=== PATIENT | female | born 1970 | race Caucasian/White ===

== ENCOUNTER 2018-02-27 15:34 | Day surgery (SDC) | payer OTHER ==
--- NOTE | 2018-02-27 15:18 | HP ---
CC: ADMITTING HISTORY AND PHYSICAL: DATE OF ADMISSION: 02/27/18 ADMITTING DIAGNOSES: 1. Left flank pain. 2. Left hydronephrosis. 3. Calculus, left proximal ureter. PLANNED PROCEDURE: Left ureteroscopy, possible laser and stent insertion ( possibly to be followed in the near future by lithotripsy). SURGEON: Dr. Verde ADMITTING HISTORY AND PHYSICAL: Chelle Delgado is a 47-year-old lady with the history of recurrent renal calculi. She was evaluated for left flank pain and nausea. She had previously been noted to have a 1 cm calculus in the mid pole of the left kidney which was missing on the ultrasound today and the ultrasound showed mild left hydronephrosis. X-ray was obtained which to me showed a smaller calculus in the vicinity of the left proximal to mid ureter and I discussed this with Chelle since the calculus to me appeared smaller on the x-ray than the 1 cm calculus described as missing on the ultrasound. She was given the option of trying conservative management, but because of the proximal location of the calculus and the severity of the pain, she would like to try and have the stone removed and is now being brought in for left ureteroscopy. I have also explained to her that because of the proximal location of the calculus, the stone may migrate into the kidney requiring shockwave lithotripsy in the near future. PAST MEDICAL HISTORY: Significant for: 1. History of morbid obesity status post gastric bypass. 2. Hypothyroidism. 3. Recurrent renal calculi. MEDICATIONS ON ADMISSION: 1. Synthroid 88 mcg a day. 2. Multivitamins daily. ALLERGIES: No known drug allergies. REVIEW OF SYSTEMS: She is otherwise in excellent health. There is no history of diabetes mellitus or any other major systemic illness. PHYSICAL EXAMINATION GENERAL: Reveals an uncomfortable appearing young lady. VITAL SIGNS: Blood pressure is 118/70, pulse 70 per minute and regular, temperature 96, oxygen saturation 97% on room air. LUNGS: Clear bilaterally. CARDIOVASCULAR: Regular rate and rhythm. S1, S2. ABDOMEN: Soft with mild left flank tenderness. IMPRESSION: A 47-year-old with a partially obstructing calculus in the left proximal ureter. PLANNED PROCEDURE: Left ureteroscopy, possible laser and stent insertion ( possibly to be followed in the near future by lithotripsy). [id number]/[facility] #: [id number] [place]
[2018-02-27] MEDS ORDERED: Buffered Lidocaine 0.9% SYRIN* 5 ML/SYR SYRINGE ONE (15:36)
[2018-02-27] MEDS ORDERED: cefTRIAXone(*) 2 GM ADDV.VIAL IVPB ONE (15:53)
[2018-02-27] MEDS ORDERED: Iohexol 180 (CONTRAST) 10 ML SDV IV ONE (16:23)
[2018-02-27] MEDS ORDERED: fentaNYL* 50 MCG/ML 2 ML VIAL (100 MCG VIAL) ONE ×2 (16:34→18:41)
[2018-02-27] MEDS ORDERED: Midazolam* 1 MG/ML 2 ML VIAL (2 MG) ONE (16:34)
[2018-02-27] MEDS ORDERED: Buffered Lidocaine 0.9% SYRIN* 5 ML/SYR SYRINGE INTRADERM ONE (16:37)
[2018-02-27] MEDS ORDERED: PROCHLORPERAZINE INJ 5 MG/ML 2 ML VIAL IV PRN (16:38)
[2018-02-27] MEDS ORDERED: DiMENhydriNATE IV* 50 MG/ML VIAL IV PUSH PRN (16:38)
[2018-02-27] MEDS ORDERED: Acetaminophen TAB* 325 MG PO PRN (16:38)
[2018-02-27] MEDS ORDERED: Ondansetron INJ* 2 MG/ML VIAL IV PRN (16:38)
[2018-02-27] MEDS ORDERED: HYDROcodone/ACETAMIN 5-325 MG* 1 TAB PO PRN (16:38)
[2018-02-27] MEDS ORDERED: Naloxone* 0.4 MG/ML 1 ML VIAL IV PRN (16:38)
[2018-02-27] MEDS ORDERED: fentaNYL* 50 MCG/ML 2 ML VIAL (100 MCG VIAL) IV PRN (16:38)
[2018-02-27] MEDS ORDERED: Gentamicin ADULT (*) 180 MG in NS 0.9% 100 ML* 100 ML IVPB ONE (17:00)
[2018-02-27] MEDS ORDERED: Lidocaine 2% PF * 5 ML VIAL ONE (17:34)
[2018-02-27] MEDS ORDERED: Propofol* 10 MG/ML 20 ML BTL IV PUSH ONE (17:56)
[2018-02-27] MEDS ORDERED: Ondansetron INJ* 2 MG/ML VIAL ONE (17:56)
[2018-02-27] MEDS ORDERED: Famotidine IV* 10 MG/ML 2 ML (20 mg) ONE (17:56)
[2018-02-27] MEDS ORDERED: Dexamethasone IV* 4 MG/ML 1 ML (4 MG) ONE (17:56)
[2018-02-27] MEDS ORDERED: Ketorolac INJ* 30 MG/ML 1 ML VIAL ONE (18:09)
--- NOTE | 2018-02-27 18:26 | RAD ---
INDICATION: Left kidney stone, stent placement. COMPARISON: Comparison is made with a prior KUB study from January 27, 2018. TECHNIQUE: 7 seconds of intermittent fluoroscopic guidance were provided and 13 spot films of the abdomen were centered on the left side. FINDINGS: There is partial opacification of the left renal collecting system. Subsequently there is placement of a double-J stent catheter on the left side which demonstrates normal course. IMPRESSION: INTRAOPERATIVE CONTROL FILMS. CPT II Codes: G9500
[2018-02-27] MEDS ORDERED: DiMENhydriNATE IV* 50 MG/ML VIAL ONE (18:41)
[2018-02-27] MEDS ORDERED: HYDROcodone/ACETAMIN 5-325 MG* 1 TAB ONE (18:41)
[2018-02-27 18:54] VITALS: BP 111/67
--- NOTE | 2018-02-27 19:50 | RAD ---
INDICATION: Postop stent placement. COMPARISON: Comparison is made with a prior KUB series from January 27, 2018. TECHNIQUE: Frontal supine films of the abdomen were obtained. FINDINGS: The small bowel and colon appear nondistended. There is a ureteral stent present on the left side which demonstrates normal course. There are multiple surgical sutures in the left upper quadrant. IMPRESSION: STATUS POST LEFT URETERAL STENT PLACEMENT.
--- NOTE | 2018-02-28 02:48 | OP ---
DATE OF OPERATION: 02/27/18 [facility] DATE OF : 66 SURGEON: Alexis Verde MD ANESTHESIOLOGIST: Dr. Quinones. ANESTHESIA: General. PRE-OP DIAGNOSES: 1. Left hydronephrosis. 2. Hematuria. POST-OP DIAGNOSES: 1. Left hydronephrosis. 2. Hematuria. OPERATIVE PROCEDURE: Cystoscopy, left retrograde pyelogram, left ureteroscopy, and left stent insertion. COMPLICATIONS: None. STENT USED: A 6-Armenian stent, left ureter. POSTOPERATIVE CONDITION: Stable. OPERATIVE FINDINGS: 1. Left hydronephrosis. 2. Edema and inflammatory response noted in left mid to proximal ureter. 3. No calculus visualized in left distal, mid or proximal ureter (either calculus passed already or migrated into the kidney). INDICATIONS: Chelle Delgado is a 47-year-old lady with a history of left flank pain and hematuria who was noted to have left hydronephrosis and is now being brought in for management of the suspected calculus in the left ureter. DESCRIPTION OF PROCEDURE: After induction of general anesthesia, the patient was placed in dorsal lithotomy position. Sequential compression devices were in place and functioning. Initial cystoscopy revealed some chronic inflammatory changes in the floor of the bladder with no evidence for any suspicious lesions noted. Clear efflux was noted from the right orifice. There was very sluggish tinged efflux noted from the left orifice. A guidewire was introduced into the left ureter. Retrograde pyelogram revealed left hydronephrosis. A 6-Armenian semi-rigid ureteroscope was introduced and advanced under direct vision. At the junction of the mid to proximal left ureteral, there was some residual edema and inflammation, but I did not visualize the calculus. It is possible that the calculus has either passed or migrated proximally into the kidney. A ureteroscope was advanced to the level of the ureteropelvic junction and at that level I still could not see a calculus. A 6-Armenian stent was introduced and positioned under fluoroscopy with good proximal and distal positioning obtained. My plan is to obtain a KUB x-ray and if there is no calculus seen in the kidney, then the assumption would be that the calculus has passed and obstruction will be due to residual edema. The patient tolerated the procedure satisfactorily and was transferred back to recovery area in stable condition. [id number]/[facility] #: [id number] [facility]
== END 2018-02-27 19:37 | disposition home or self-care (01) ==
LOC: OR 15:34
PROVIDERS: ATTEND Urology
DX: N13.30 Unspecified hydronephrosis (principal); R31.9 Hematuria, unspecified; Z87.442 Personal history of urinary calculi; E03.9 Hypothyroidism, unspecified; Z98.84 Bariatric surgery status; E66.01 Morbid (severe) obesity due to excess calories
CPT/HCPCS: 74018; 74420; C1876; J0696; J1100; J1240; J1580; J1885; J2250; J2405; J2704; J3010

== ENCOUNTER 2018-03-06 12:04 | Day surgery (SDC) | payer OTHER ==
[~2018-03-06 12:04] MED LIST: Buffered Lidocaine 0.9% SYRIN* 5 ML/SYR SYRINGE INTRADERM ONE; Dexamethasone IV* 4 MG/ML 1 ML (4 MG) IV SLOW PU ONE; Famotidine TAB* 20 MG PO ONE
[2018-03-06] MEDS ORDERED: Dexamethasone IV* 4 MG/ML 1 ML (4 MG) ONE (12:30)
[2018-03-06] MEDS ORDERED: Famotidine TAB* 20 MG ONE (12:30)
[2018-03-06] MEDS ORDERED: cefTRIAXone(*) 2 GM ADDV.VIAL IVPB ONE (12:31)
[2018-03-06] MEDS ORDERED: Buffered Lidocaine 0.9% SYRIN* 5 ML/SYR SYRINGE ONE (12:31)
[2018-03-06] MEDS ORDERED: Midazolam* 1 MG/ML 2 ML VIAL (2 MG) ONE (12:51)
[2018-03-06] MEDS ORDERED: fentaNYL* 50 MCG/ML 2 ML VIAL (100 MCG VIAL) ONE (12:51)
--- NOTE | 2018-03-06 13:15 | RAD ---
Indication: Lithotripsy. Single view of the abdomen demonstrates left ureteral stent in place. Calcifications are noted overlying the left kidney midportion. Right kidney is unremarkable. When compared to previous exam of March 01, 2018 no significant change is noted. IMPRESSION: Left ureteral stent in place without significant change.
[2018-03-06] MEDS ORDERED: Propofol* 10 MG/ML 20 ML BTL IV PUSH ONE (13:59)
[2018-03-06] MEDS ORDERED: Ondansetron INJ* 2 MG/ML VIAL ONE (13:59)
[2018-03-06 15:33] VITALS: BP 110/65
--- NOTE | 2018-03-06 22:46 | OP ---
CC: Vivian Schaffer NP; Dr. Alexis Verde* OPERATIVE REPORT: DATE OF OPERATION: 03/06/18 - [facility] DATE OF : 66 SURGEON: Alexis Verde MD ANESTHESIOLOGIST: Dr. Mendiola. ANESTHESIA: General. PRE-OP DIAGNOSIS: Left renal calculus. POST-OP DIAGNOSIS: Left renal calculus. OPERATIVE PROCEDURE: 1. Shockwave lithotripsy, left renal calculus. 2. Cystoscopy and left stent removal. COMPLICATIONS: None. POSTOPERATIVE CONDITION: Stable. INDICATIONS: Chelle Delgado is a 47-year-old lady with a history of recurrent renal calculi. She had undergone urgent left stent insertion for an obstructing left proximal ureteral calculus. She is now being brought in for lithotripsy. DESCRIPTION OF PROCEDURE: After induction of general anesthesia, the patient was placed on the lithotripsy table in a supine position. The calculus which was somewhat difficult to visualize on the preoperative x-rays could be visualized on fluoroscopy in the mid to upper pole area of the left kidney. Shockwave lithotripsy was commenced at a rate of 60 shocks per minute. After the initial 300 shocks, there was a pause in lithotripsy for several minutes in an effort to minimize any potential trauma to the kidney. Lithotripsy was then resumed and a total of 1000 shocks were administered. Next, the patient was placed in dorsal lithotomy position and cystoscopy was performed. The stent was seen exiting from the left orifice and was removed intact without difficulty. The bladder was emptied. The patient tolerated the procedure satisfactorily and was transferred back to the recovery area in stable condition. [id number]/[facility] #: [id number] [facility]ITAL[facility]
== END 2018-03-06 16:03 | disposition home or self-care (01) ==
LOC: OR 12:04
PROVIDERS: ATTEND Urology
DX: N20.0 Calculus of kidney (principal); E03.9 Hypothyroidism, unspecified; Z98.84 Bariatric surgery status; Z68.38 Body mass index [BMI] 38.0-38.9, adult; M19.90 Unspecified osteoarthritis, unspecified site; F41.9 Anxiety disorder, unspecified
CPT/HCPCS: 74018; A9270-GY; J0696; J1100; J2250; J2405; J2704; J3010

== ENCOUNTER 2020-01-10 07:57 | Emergency (ER) | payer BC ==
[2020-01-10] MEDS ORDERED: diPHENhydraMINE IV* 50 MG/ML 1 ml VIAL (BENADRYL) IV ONE (08:25)
[2020-01-10] MEDS ORDERED: NS 0.9% 500 ML* 500 ML IV ONE (08:25)
--- NOTE | 2020-01-10 08:25 | ED ---
Headache - HPI Summary HPI Summary: Patient is a 49 y/o female presenting to [facility] with a chief compliant of left- sided headache initially onset yesterday and worsening into today. She reports that she had an appointment with her parts person in [place] yesterday, who she sees for psoriatic arthritis. While on her way to the appointment, she developed nausea and a headache in the left eye. She also had cognitive issues where she was having trouble focusing on the road, and while she was at her appointment, she had trouble getting her words out which lasted for about 30 minutes around 1540. After her appointment, she was advised to go the ED, but she left before being seen due to the wait times. She thought that the symptoms were from migraines that she often experiences, but the pain did not resolve overnight as usual. She woke up this morning with pain on the left side of the face and head radiating behind the left ear and into the neck and shoulder, accopmanied by lightheadedness but no dizziness, no auditory changes. On her way to the ED today, she felt some mild upper chest discomfort that resolved quickly. Currently, she states she is feeling heavy, gravity sucking me into the ground, and she is nauseous. She notes sleep disturbance which she attributes to her usual pains from arthritis. Symptoms rated 7/10 in severity. She denies any fever, chills, erythema of eyes, blurred vision, sore throat, SOB , cough, abdominal pain, vomiting, dysuria, hematuria, urinary frequency, edema , or rash. She notes that she had elevated iron levels recently and was advised to take a multivitamin without iron, which she did. No known trauma. Past medical history significant for hypothyroidism, gastric bypass, kidney stones. Nonsmoker, rare alcohol use, no substance use. Medications reviewed. Allergies noted. - History Of Current Complaint Chief Complaint: EDHeadache Stated Complaint: HEADACHE/FACIAL/NECK PAIN PER PT Time Seen by Provider: 01/10/20 08:09 Hx Obtained From: Patient Onset/Duration: Sudden Onset, Started hours ago - yesterday afternoon, Still Present Initially Headache Was: Moderate Currently Pain Is: Current Pain Scale(0-10)= - 7 Timing: Constant Character: Migraine Location of Headache: Temporal - left Radiates to: behind left ear to neck Aggravating Factor: Nothing Allevating Factors: Nothing Associated Signs And Symptoms: Nausea, Other (Noted In Comments) - pain on the left side of the face and head radiating behind the left ear and into the neck and shoulder, lightheadedness, cognitive difficulties with speech and focusing; Negative: audisotry change, dizziness, fever, chills, erythema of eyes, sore throat, SOB, cough, abdominal pain, N/V, dysuria, hematuria, edema, rash - Allergies/Home Medications Allergies/Adverse Reactions: Allergies Allergy/AdvReac Type Severity Reaction Status Date / Time Adhesive Tape Allergy Intermediate Rash Verified 03/06/18 12:18 Home Medications: Home Medications Levothyroxine TAB* [Synthroid 75 MCG TAB*] 112 mcg PO 0800 11/28/13 [History Confirmed 01/10/20] Biotin 5,000 mcg PO QAM 03/26/14 [History Confirmed 01/10/20] Multivitamin [Multi-Vitamin] 1 tab PO BID 03/26/14 [History Confirmed 01/10/20] Ibuprofen TAB* [Motrin TAB* 400 MG] 400 mg PO Q6H PRN 03/02/18 [History Confirmed 01/10/20] Demond/D3/Mag11/Zinc/Crane Manager/Preston/Bor [Caltrate 600+D Plus] 1 tab PO DAILY 01/10/20 [ History Confirmed 01/10/20] Cholecalciferol TAB* [Vitamin D TAB*] 2,000 units PO DAILY 01/10/20 [History Confirmed 01/10/20] Cyanocobalamin (Vitamin B-12) [B-12] 2,500 mcg SL DAILY 01/10/20 [History Confirmed 01/10/20] Ergocalciferol CAP* [Drisdol CAP*] 1 tab PO WEEKLY 01/10/20 [History Confirmed 01/10/20] Folic Acid TAB* [Folvite TAB*] 1 mg PO DAILY 01/10/20 [History Confirmed ] Methotrexate TAB* 2.5 mg PO SEE INSTRUCTIONS 01/10/20 [History Confirmed ] Pediatric Multivitamin No.136 [Children Multivitamin] 2 each PO DAILY 01/10/20 [ History Confirmed 01/10/20] Progesterone, Micronized [Progesterone] 100 mg PO DAILY 01/10/20 [History Confirmed 01/10/20] Sod Phos,M-B/K Phos,Monob [K-Phos No 2] 1 tab PO DAILY 01/10/20 [History Confirmed 01/10/20] PMH/Surg Hx/FS Hx/Imm Hx Endocrine/Hematology History: Reports: Hx Thyroid Disease, Other Endocrine/ Hematological Disorders - psoriatic arthritis Denies: Hx Diabetes Cardiovascular History: Denies: Hx Hypertension, Hx Pacemaker/ICD GI History: Reports: Other GI Disorders - gastric bypass History: Reports: Hx Kidney Stones - 02/2018 Denies: Hx Renal Disease Musculoskeletal History: Reports: Hx Arthritis - right knee Sensory History: Reports: Hx Contacts or Glasses - glasses Denies: Hx Hearing Aid Opthamlomology History: Reports: Hx Contacts or Glasses - glasses Psychiatric History: Reports: Hx Anxiety Denies: Hx Panic Disorder - Cancer History Hx Chemotherapy: No Hx Radiation Therapy: No - Surgical History Surgery Procedure, Year, and Place: 2 C SECTION. HYSTERECTOMY. LITHROTRIPSY. CARPAL TUNNEL - Rt. GANGLION CYST - [facility]ST. GASTRIC BYPASS 03/27 [facility] Hx Anesthesia Reactions: Yes - brother had seizures coming out of anesthesia Infectious Disease History: No Infectious Disease History: Denies: Traveled Outside the [place] in Last 30 Days - Social History Alcohol Use: Rare Hx Substance Use: No Substance Use Type: Reports: None Hx Tobacco Use: No Smoking Status (MU): Never Smoked Tobacco Have You Smoked in the Last Year: No Review of Systems Negative: Fever, Chills Negative: Blurred Vision, Erythema Positive: Ear Ache - left. Negative: Sore Throat, Other - auditory changes Positive: Chest Pain Negative: Shortness Of Breath, Cough Positive: Nausea. Negative: Abdominal Pain, Vomiting Negative: dysuria, frequency, hematuria Positive: Myalgia - left neck. Negative: Edema Negative: Rash Neurological/Mental Status: Other - cognitive difficulties; Negative: dizziness Positive: Headache - left temporal. Negative: Paresthesia, Numbness All Other Systems Reviewed And Are Negative: Yes Physical Exam - Summary Physical Exam Summary: Constitutional: Well-developed, Well-nourished, Alert. (-) Distressed Skin: Warm, Dry HENT: No tenderness with tugging at tragus, No erythema of ear lobe, No mastoid erythema; Normocephalic; Atraumatic Eyes: Conjunctiva normal Neck: Tends to rotate and flex neck, Reported discomfort of the left lateral neck and posterior midline. Musculoskeletal ROM normal neck. (-) JVD, (-) Stridor, (-) Tracheal deviation Cardio: Rhythm regular, rate normal, Heart sounds normal; Intact distal pulses; The pedal pulses are 2+ and symmetric. Radial pulses are 2+ and symmetric. (-) Murmur Pulmonary/Chest wall: Effort normal. (-) Respiratory distress, (-) Wheezes, (-) Rales Abd: Soft. (-) Tenderness, (-) Distension, (-) Guarding, (-) Rebound Musculoskeletal: (-) Edema Lymph: (-) Cervical adenopathy Neuro: Alert, Oriented x3, Strength normal, Cranial nerves II-XII are grossly intact. (-) Dysmetria, (-) Nystagmus, (-) Ataxia by finger to nose testing, (-) Sensory deficit. Psych: Mood and affect Normal GCS: 15 Triage Information Reviewed: Yes Vital Signs On Initial Exam: Initial Vitals Temp Pulse Resp BP Pulse Ox 97.9 F 78 16 172/93 98 01/10/20 07:58 01/10/20 07:58 01/10/20 07:58 01/10/20 07:58 01/10/20 07:58 Vital Signs Reviewed: Yes - [place] Coma Scale Best Eye Response: 4 - Spontaneous Best Motor Response: 6 - Obeys Commands Best Verbal Response: 5 - Oriented Coma Scale Total: 15 Procedures - Sedation Patient Received Moderate/Deep Sedation with Procedure: No Diagnostics - Vital Signs Vital Signs Temp Pulse Resp BP Pulse Ox 01/10/20 07:58 97.9 F 78 16 172/93 98 - Laboratory Result Diagrams: 01/10/20 08:30 01/10/20 08:30 Lab Statement: Any lab studies that have been ordered have been reviewed, and results considered in the medical decision making process. - Radiology CXR Radiology Interpretation Completed By: Radiologist Summary of Radiographic Findings: Impression: No acute cardiopulmonary process by radiograph. ED physician has reviewed this report. - CT Brain CT CT Interpretation Completed By: Radiologist Summary of CT Findings: Impression: No intracranial mass or hemorrhage is noted. ED physician has reviewed this report. - EKG 0844 Cardiac Rate: NL - 63 BPM EKG Rhythm: Sinus Rhythm Summary of EKG Findings: An EKG at 0844 reveals sinus rhythm at 63 BPM. T wave inversions in V3 and V4. No STEMI. ED physician has reviewed this report. 1111 Cardiac Rate: NL - 65 BPM EKG Rhythm: Sinus Rhythm Summary of EKG Findings: An EKG at 1111 reveals sinus rhythm at 65 BPM. No STEMI. ED physician has reviewed this report. Re-Evaluation - Re-Evaluation First Eval Re-Evaluation Time: 13:40 Change: Improved Comment: Headache significantly improved. Discussed all results and plan for discharge. Return precautions gievn. Second Eval Re-Evaluation Time: 13:45 Comment: Patient states word finding difficulty for a few weeks, not an acute episode yesterday. Headache Course/Dx - Course Course Of Treatment: Patient is a 49 y/o F presenting with headache beginning in the left eye that moved into the left side of the face and temporal areas, radiating behind the left ear and into the neck onset yesterday around 1330 with persistence, which is not typical of the migraines she experiences with psoriatic arthritis. States 30-minute episode of cognitive difficulty with focusing and speech, episode of upper CP lasting a few minutes, lightheadedness , nausea. Denies fevers, cough, blurred vision, urinary symptoms, and auditory changes. Past medical history significant for hypothyroidism, gastric bypass. Physical exam reveals patient to tend to rotate and flex neck, reported discomfort of the left lateral neck and posterior midline, no tenderness with tugging at the tragus, no erythema of the ear lobe, no mastoid tenderness. Differential diagnoses include symptomatic anemia, migraine, IL, UTI, cervical strain, TIA, subarachnoid hemorrhage, meningitis, conversion disorder, somatization disorder. IV access obtained. Patient received fluids and Benadryl. Blood work without significant abnormality except for glucose of 104, alkaline phosphatase of 117. First troponin negative. Lactic acid WNL. UA shows trace leukocyte esterase, squamous epithelial cells, and 1+ bacteria but is otherwise normal. An EKG at 0844 reveals sinus rhythm at 63 BPM, TWI in V3 and V4, no STEMI. CXR impression is negative for acute disease. Brain CT impression is negative for intracranial mass or hemorrhage. Second troponin negative. A second EKG at 1111 reveals sinus rhythm at 65 BPM, no STEMI. Second troponin negative. Repeat lactic acid WNL. Patient received Toradol and Zofran. There are no signs of mastoiditis; no mastoid tenderness or redness, mastoid airspace appears to be clear on CT. No evidence of acute infection or inflammation; CRP and WBC both negative. Patient has been experiencing significant sleep disturbance and nightmares, as well as significant stress at work. Given constellation of other symptoms, I do no suspect TIA as primary presentation. All results discussed with the patient and her . Patient states that the word finding difficulty has been occurring for a few weeks, not as an acute episode yesterday. Return precautions given for return or progression of symptoms. Patient advised to follow up with her PCP in 2-3 days and neurology in one week. Patient agreeable with plan. - Diagnoses Differential Diagnosis/HQI/PQRI: TIA, Meningitis, Migraine, Subarachnoid Hemorrhage, Other - symptomatic anemia, IL, UTI, cervical strain, conversion disorder, somatization disorder Provider Diagnoses: Migraine headache, Jaw pain, Word finding difficulty Discharge ED - Sign-Out/Discharge Documenting (check all that apply): Patient Departure - Patient will be discharged home. - Discharge Plan Condition: Stable Disposition: HOME Patient Education Materials: Migraine Headache (ED) Forms: *Work Release Referrals: Luciana Chacon [Primary Care Provider] - 3 Days Chava Su MD [Medical Doctor] - 1 Week Additional Instructions: Follow up with your primary care provider in 2-3 days. Follow up with neurology in one week. Return to the emergency department for any new or worsening symptoms, if your symptoms return or progress. - Attestation Statements Document Initiated by Jorgeibnoreen: Yes Documenting Scribe: Tonie Goldstein Provider For Whom Brendon is Documenting (Include Credential): Dr. Tico Xiao MD Scribe Attestation: I, viri Trujillo for Dr. Tico Xiao MD on 01/10/20 at 1345. Status of Scribe Document: Ready
[2020-01-10] MEDS ORDERED: NS 0.9% 1000 ML** 1,000 ML IV ONE (08:41)
[2020-01-10 08:51] LABS: ABS Basophils 0.1 10^3/ul (0-0.2); ABS Eosinophils 0.1 10^3/ul (0-0.6); ABS Lymphocytes 1.1 10^3/ul (1.0-4.8); ABS Monocytes 0.4 10^3/ul (0-0.8); Eosinophil % 0.8 %; Hematocrit 42 % (35-47); Hemoglobin 14.2 g/dL (12.0-16.0); Mean Corpuscular HGB Conc 34 g/dL (31-36); Mean Corpuscular Hemoglobin 31 pg (27-31); Mean Corpuscular Volume 92 fL (80-97); Mean Platelet Volume 8.3 fL (7.4-10.4); Platelet Count 327 10^3/uL (150-450); Red Cell Distribution Width 14 % (10-15); White Blood Count 6.7 10^3/uL (3.5-10.8)
[2020-01-10 09:02] LABS: Activated Partial Thrombo Time 31.8 seconds (26.0-38.0); INR 1.07 (0.82-1.09)
[2020-01-10 09:14] LABS: ALT 20 U/L (7-52); AST 18 U/L (13-39); Albumin 4.1 g/dL (3.2-5.2); Albumin/Globulin Ratio 1.3 (1-3); Alkaline Phosphatase 117 U/L (34-104); Anion Gap 7 mmol/L (2-11); BUN/Creatinine Ratio 14.1 (8-20); Blood Urea Nitrogen 10 mg/dL (6-24); CO2 Carbon Dioxide 26 mmol/L (22-32); CRP High Sensitivity 1.95 mg/L (<2.00); Calcium 9.4 mg/dL (8.6-10.3); Chloride 105 mmol/L (101-111); EGFR Non-African American 86.8 (>60); Globulin 3.1 g/dL (2-4); Glucose 104 mg/dL (70-100); Potassium 4.1 mmol/L (3.5-5.0); Sodium 138 mmol/L (135-145); Total Protein 7.2 g/dL (6.4-8.9)
[2020-01-10] MEDS ORDERED: Ketorolac INJ* 30 MG/ML 1 ML VIAL IV PUSH ONE (11:03)
[2020-01-10] MEDS ORDERED: Ondansetron ODT TAB* 4 MG SL ONE (11:39)
[2020-01-10 12:05] LABS: Urine Appearance Clear; Urine Bilirubin Negative (Negative); Urine Blood Negative (Negative); Urine Color Straw; Urine Glucose Negative (Negative); Urine Ketones Negative (Negative); Urine Nitrite Negative (Negative); Urine Protein Negative (Negative); Urine Specific Gravity 1.004 (1.010-1.030); Urine Urobilinogen Negative (Negative)
[2020-01-10 12:20] LABS: Urine Bacteria 1+ (Absent); Urine Red Blood Cell Absent (Absent); Urine Squamous Epithelial Cell Present (Absent); Urine White Blood Cell Trace(0-5/hpf) (Absent)
[2020-01-10 13:04] LABS: % Iron Saturation 33 % (15-55); Iron 124 ug/dL (50-212); Total Iron Binding Capacity 377 mcg/dL (250-450); Transferrin 269 mg/dL (203-362)
[2020-01-10 14:08] VITALS: BP 120/75
--- NOTE | 2020-01-13 07:50 | ED ---
Imaging and Labs Follow Up Follow Up Type: Labs/Cultures Labs/Culture Result: e coli Patient Communication/Plan: patient had trace leuks and squamous cells - this is consistent with a contaminant Patient Communication/Plan: patient was asymptomatic of UTI and will not treat at this time - no fevers Provider Diagnoses: Migraine headache, Jaw pain, Word finding difficulty
== END 2020-01-10 14:06 | disposition home or self-care (01) ==
LOC: ED 07:57
DX: G43.909 Migraine, unspecified, not intractable, without status migrainosus (principal); R68.84 Jaw pain; R47.01 Aphasia; E03.9 Hypothyroidism, unspecified; F41.9 Anxiety disorder, unspecified; Z98.84 Bariatric surgery status; Z87.442 Personal history of urinary calculi; Z90.710 Acquired absence of both cervix and uterus; Z79.890 Hormone replacement therapy; Z79.899 Other long term (current) drug therapy
CPT/HCPCS: 36415; 70450; 71045; 80053; 81003; 81015; 83540; 83550; 83605; 84484; 85025; 85610; 85730; 86141; 87040; 87077; 87086; 87186; 93005; 96361; 96374; 96375; 99283; A9270-GY; J1200; J1885